=== PATIENT | male | born 1975 | race Caucasian/White ===

== ENCOUNTER 2017-05-18 05:45 | Day surgery (SDC) | payer OTHER ==
[~2017-05-18] VITALS: Ht 180.3 cm; Wt 80.6 kg
[2017-05-18 06:50] VITALS: Ht 180.3 cm; Wt 80.6 kg
[2017-05-18] MEDS ORDERED: OMEPRAZOLE (06:52)
[2017-05-18] MEDS ORDERED: FENTAnyl 50 MCG/ML VIAL ONE (07:42)
[2017-05-18] MEDS ORDERED: MIDAZOLAM 1 MG/ML 2 ML INJ ONE ×2 (07:42)
--- NOTE | 2017-05-18 07:42 | OPPN ---
Date/Time of Note Date/Time of Note DATE: 05/18/17 TIME: 07:40 Operative Report Preoperative Diagnosis Abdominal pain Chronic heartburn Postoperative Diagnosis Residual food in the stomach Gastritis Operation/Procedure Performed Esophagogastroduodenoscopy and biopsy Surgeon see signature line assistant news director None Anesthesia: moderate sedation Estimated blood loss: none Transfusion Required none Specimen Gastric mucosal biopsy Grafts/Implants none Complications none LEONID WYNN MD May 18, 2017 07:42
--- NOTE | 2017-05-18 07:42 | OPPN ---
Date/Time of Note Date/Time of Note DATE: 05/18/17 TIME: 07:40 Operative Report Preoperative Diagnosis Abdominal pain Chronic heartburn Postoperative Diagnosis Residual food in the stomach Gastritis Operation/Procedure Performed Esophagogastroduodenoscopy and biopsy Surgeon see signature line workforce development assistant None Anesthesia: moderate sedation Estimated blood loss: none Transfusion Required none Specimen Gastric mucosal biopsy Grafts/Implants none Complications none LEONID WYNN MD May 18, 2017 07:42
[2017-05-18 07:51] VITALS: BP 131/87; RESP 14
--- NOTE | 2017-05-18 09:34 | GILP ---
DATE OF PROCEDURE: NAME OF PROCEDURE: Esophagogastroduodenoscopy and biopsy. SURGEON: Raheem Lynch MD PREOPERATIVE DIAGNOSES: 1. Abdominal pain. 2. Chronic heartburn. POSTOPERATIVE DIAGNOSES 1. Gastritis. 2. Residual food in the stomach, making the exam inadequate. 3. Gastric mucosal biopsies were taken for Helicobacter pylori test. INDICATION FOR THE PROCEDURE: Mr. Chuy Robin is a 41-year-old male patient who had upper abdomi nal pain and chronic heartburn, not responding to therapy. The patient was scheduled for endoscopic examination for further evaluation. The procedure and possible complications are well explained to the patient, he understood and consen abelardo to the procedure. DESCRIPTION OF PROCEDURE: Under the influence of fentanyl and Versed, the gastroscope was carefully introduced into the esophagus and under direct vision, it was advanced to the stomach and through t he pylorus into the duodenal bulb and descending duodenum. FINDINGS: ESOPHAGUS: The mucosa was normal. STOMACH: The patient had residual food in the stomach, making the exam very inadequate. The patien t had gastritis. Gastric mucosal biopsies were taken for H. pylori test. Duodenum was normal. He tolerated the procedure very well and there was no complication from the procedure. At the end o f the procedure, he was awake with stable vital signs and he was discharged home to the care of his family. IMPRESSION: Please see postoperative diagnoses. PLAN: 1. Continue omeprazole. 2. Await H. pylori test report. 3. The patient will need repeat endoscopy with prolonged fasting. Dictated By: RAHEEM WHALEY/MASHA Conf#: [id number] DID#: [id number]
--- NOTE | 2017-05-19 07:39 | CONS ---
DATE OF ADMISSION: DATE OF CONSULTATION: I thank you very much for this kind referral. HISTORY OF PRESENT ILLNESS: Mr. Chuy Ba is a 41-year-old male patient, who was referred to me for further evaluation of chronic heartburn and upper abdominal pain, not responding to therapy. The patient also complaining of vomiting off and on. There is no past history of peptic ulcer disease. He is not taking any nonsteroidal anti-inflammatory agents. The patient states he has been losing weight. No history of gallstones or liver disease. No change in the bowel habits or rectal bleeding. No history of inflammatory bowel disease. Not hypertensive or diabetic. No heart disease, lung problem, or kidney disease. SOCIAL HISTORY: Nonsmoker. No alcohol abuse. FAMILY HISTORY: No family history of gastrointestinal tract neoplasm. ALLERGIES: NO DRUG ALLERGIES. MEDICATIONS: Omeprazole p.r.n. PHYSICAL EXAMINATION: GENERAL: He is 5 feet 11 inches tall, weighs 175 pounds. HEART: Normal heart sounds. LUNGS: Clear. ABDOMEN: Soft. No masses. Normal bowel sounds. NEUROLOGIC: Normal neurological examination. IMPRESSION: 1. Upper abdominal pain and chronic heartburn, not responding to therapy. 2. History of vomiting. 3. Weight loss. PLAN: Esophagogastroduodenoscopy for further evaluation. The procedure and possible complications were well explained to the patient. He understands and consents to the procedure. I thank you once again. With warmest personal regards, Patient Name: CHUY BA Dictated By: MD JUDD Swenson/ellen/renee /Document#: [id number]
== END 2017-05-18 09:44 | disposition home or self-care (01) ==
LOC: GIL 05:45
PROVIDERS: ATTEND Internal Medicine Gastroenterology
DX: R12 Heartburn (principal); K29.70 Gastritis, unspecified, without bleeding
CPT/HCPCS: 43239; 87081; J2250; J3010

== ENCOUNTER 2017-08-17 06:09 | Day surgery (SDC) | END 2017-08-17 11:43 | disposition home or self-care (01) ==